=== PATIENT | female | born 1960 | race Caucasian/White ===

== ENCOUNTER 2020-11-02 11:08 | Emergency (ER) | payer MEDICARE, MEDICAID ==
[~2020-11-02] VITALS: Ht 157.5 cm; Wt 45.8 kg
[~2020-11-02 11:08] MED LIST: ASPI-605 PO; CALC-867 PO; CHOL200074 PO; HERB1TAB PO; LOSA50TA39 PO; MULT-24 GT; OXCA150T13 PO; PANT40SU PO
[2020-11-02 11:14] VITALS: BP 135/81
--- NOTE | 2020-11-02 11:23 | NUR ---
PATIENT REFUSED TO BE SEEN BY MD, REFUSED ANY FURTHER TREATMENT. RUDE AND CURSED STAFF. PATIENT WALKED OUT OF THE BUILDING. DR. SALMERON MADE AWARE.
--- NOTE | 2020-11-02 11:25 | NUR ---
PATIENT LEFT WITHOUT BEING SEEN BY PROVIDER.
== END 2020-11-02 11:25 | disposition left against medical advice (07) ==
LOC: ER 11:17
DX: Z53.21 Procedure and treatment not carried out due to patient leaving prior to being seen by health care provider (principal); R55 Syncope and collapse; R53.1 Weakness; F15.90 Other stimulant use, unspecified, uncomplicated; I10 Essential (primary) hypertension; J45.909 Unspecified asthma, uncomplicated; M81.0 Age-related osteoporosis without current pathological fracture; F32.9 Major depressive disorder, single episode, unspecified; F17.200 Nicotine dependence, unspecified, uncomplicated; Z98.890 Other specified postprocedural states; Z88.2 Allergy status to sulfonamides; Z79.899 Other long term (current) drug therapy; Z79.82 Long term (current) use of aspirin

== ENCOUNTER 2021-06-22 22:59 | Emergency (ER) | payer MEDICARE, OTHER ==
[~2021-06-22] VITALS: Ht 157.5 cm; Wt 50.3 kg
[2021-06-22] MEDS ORDERED: ALBUTEROL FS 2.5 MG/3 ML VIAL.NEB ONE (23:04)
[2021-06-22] MEDS ORDERED: IPRATROPIUM NEB FS 0.5 MG/2.5 ML AMPUL.NEB ONE (23:04)
[2021-06-22] MEDS ORDERED: Magnesium 1GM/D5W 100ML PREMIX 200 ML IV ONE ×2 (23:06→23:30)
[2021-06-22] MEDS ORDERED: methylPREDNISolone SOD SUCC 125 MG/2ML VIAL ONE (23:06)
[2021-06-22] MEDS ORDERED: ALBUTEROL FS 2.5 MG/3 ML VIAL.NEB CONTNEB ONE (23:30)
[2021-06-22] MEDS ORDERED: methylPREDNISolone SOD SUCC 125 MG/2ML VIAL IV ONE (23:30)
[2021-06-22] MEDS ORDERED: IPRATROPIUM NEB FS 0.5 MG/2.5 ML AMPUL.NEB NEB ONE (23:30)
[2021-06-22 23:32] LABS: BASOPHILS # (AUTO) 0.1 K/uL (0.0-0.2); BASOPHILS % (AUTO) 1.3 % (0.0-2.0); EOSINOPHILS % (AUTO) 7.8 % (0.0-6.0); HEMATOCRIT 35 % (33-45); HEMOGLOBIN 10.7 g/dL (11.5-14.8); LYMPHOCYTES # (AUTO) 2.4 K/uL (0.8-4.8); LYMPHOCYTES % (AUTO) 31.5 % (20.0-44.0); MEAN CORPUSCULAR HGB CONC 31 g/dl (31.0-36.0); MEAN CORPUSCULAR VOLUME 70 fL (82-100); MONOCYTES # (AUTO) 0.4 K/uL (0.1-1.30); MONOCYTES % (AUTO) 5.7 % (2.0-12.0); NEUTROPHILS # (AUTO) 4.1 K/uL (1.8-8.9); NEUTROPHILS % (AUTO) 53.7 % (43.0-81.0); PLATELET COUNT (AUTO) 444 K/uL (150-450); RED BLOOD CELL COUNT(AUTO) 4.98 MIL/uL (4.0-5.2); WHITE BLOOD COUNT (AUTO) 7.6 K/uL (4.3-11.0)
[2021-06-22 23:44] LABS: CARBON DIOXIDE 28 mmol/L (21-32); CHLORIDE 102 mmol/L (98-107); CREATININE 0.8 mg/dL (0.6-1.3); GLUCOSE 108 mg/dL (74-106); SODIUM SERUM 137 mmol/L (136-145); UREA NITROGEN, BLOOD 16 mg/dL (7-18)
[2021-06-22 23:58] LABS: ALANINE AMINOTRANSFERASE 23 U/L (12-78); ALBUMIN 3.7 g/dL (3.4-5.0); ALKALINE PHOSPHATASE 120 U/L (46-116); ASPARTATE AMINOTRANSFERASE 17 U/L (15-37); BILIRUBIN,DIRECT 0.1 mg/dL (0.0-0.2); BILIRUBIN,TOTAL 0.2 mg/dL (0.2-1.0)
[2021-06-23 00:16] VITALS: BP 143/82
[2021-06-23 06:52] LABS: EOSINOPHILS % (MANUAL) 1 % (0-4); LYMPHOCYTES % (MANUAL) 27 % (16-48); MONOCYTES % (MANUAL) 7 % (0-11.0); NEUTROPHILS % (MANUAL) 65 (42-76)
== END 2021-06-23 00:16 | disposition home or self-care (01) ==
LOC: ER 23:03
DX: J45.902 Unspecified asthma with status asthmaticus (principal); Z87.891 Personal history of nicotine dependence; F14.10 Cocaine abuse, uncomplicated; Z53.29 Procedure and treatment not carried out because of patient's decision for other reasons; Z20.822 Contact with and (suspected) exposure to COVID-19; I34.1 Nonrheumatic mitral (valve) prolapse; I10 Essential (primary) hypertension; Z85.828 Personal history of other malignant neoplasm of skin; Z88.2 Allergy status to sulfonamides; Z98.84 Bariatric surgery status; Z79.82 Long term (current) use of aspirin; Z79.899 Other long term (current) drug therapy
CPT/HCPCS: 36415; 71045; 80048; 80076; 83880; 84484; 85007; 85025; 87426; 93005; 94644; 96365; 96366; 96375; 99291; 99292; J2930; J3475; C9803

== ENCOUNTER 2022-02-11 08:56 | Emergency (ER) | payer MEDICARE, OTHER ==
[~2022-02-11] VITALS: Ht 157.5 cm; Wt 49.9 kg
--- NOTE | 2022-02-11 09:00 | NUR ---
BIBROOM MATE C/O worsening sob, asthma no relief with her inhaler. PLACED ON BED, AAOX4, DYSPNEIC RR-35 SATURATING AT 91%RA, ATTACHED TO MONITOR- NORMAL SINUS RHYTHYM AL-85.
--- NOTE | 2022-02-11 09:00 | NUR ---
Note yessi in EDM - 02/11/22 at 1018 by ROLLY BIB ROOM MATE C/O worsening sob, asthma no relief with her inhaler. PLACED ON BED, AAOX4, DYSPNEIC RR-35 SATURATING AT 91%RA, ATTACHED TO MONITOR NORMAL SINUS RHYTHYM NJ-85.
[2022-02-11] MEDS ORDERED: IPRATROPIUM NEB FS 0.5 MG/2.5 ML AMPUL.NEB ONE (09:10)
[2022-02-11] MEDS ORDERED: ALBUTEROL FS 2.5 MG/3 ML VIAL.NEB ONE (09:10)
--- NOTE | 2022-02-11 09:10 | NUR ---
BLOOD DRAWN SWAB FOR COVID19 SENT TO LAB
--- NOTE | 2022-02-11 09:10 | NUR ---
Earnest dickson in [facility] - 02/11/22 at 1018 by ROLLY BLOOD DRAWN AND SWAB FOR COVID19 SENT TO LAB
--- NOTE | 2022-02-11 09:15 | NUR ---
MOVE SHEET SUBMITTED.
[2022-02-11] MEDS ORDERED: methylPREDNISolone SOD SUCC 125 MG/2ML VIAL ONE (09:20)
[2022-02-11] MEDS: methylPREDNISolone SOD SUCC 125 MG/2ML VIAL IV ONE (09:23)
[2022-02-11] MEDS ORDERED: Magnesium 1GM/D5W 100ML PREMIX 0 ML IV ONE (09:25)
[2022-02-11] MEDS: Magnesium 1GM/D5W 100ML PREMIX 200 ML IV ONE (09:30)
[2022-02-11] MEDS ORDERED: ALBUTEROL FS 2.5 MG/3 ML VIAL.NEB CONTNEB ONE (09:30)
[2022-02-11] MEDS ORDERED: IPRATROPIUM NEB FS 0.5 MG/2.5 ML AMPUL.NEB NEB ONE (09:30)
[2022-02-11] MEDS ORDERED: ACETAMINOPHEN 325 MG TABLET ONE (09:37)
[2022-02-11 09:42] LABS: BASOPHILS # (AUTO) 0.1 K/uL (0.0-0.2); BASOPHILS % (AUTO) 1.3 % (0.0-2.0); EOSINOPHILS % (AUTO) 7.9 % (0.0-6.0); HEMATOCRIT 30 % (33-45); LYMPHOCYTES # (AUTO) 1.7 K/uL (0.8-4.8); LYMPHOCYTES % (AUTO) 26.3 % (20.0-44.0); MEAN CORPUSCULAR HGB CONC 30 g/dl (31.0-36.0); MEAN CORPUSCULAR VOLUME 73 fL (82-100); MONOCYTES # (AUTO) 0.5 K/uL (0.1-1.30); MONOCYTES % (AUTO) 7.8 % (2.0-12.0); NEUTROPHILS # (AUTO) 3.7 K/uL (1.8-8.9); NEUTROPHILS % (AUTO) 56.7 % (43.0-81.0); PLATELET COUNT (AUTO) 455 K/uL (150-450); RED BLOOD CELL COUNT(AUTO) 4.04 MIL/uL (4.0-5.2); WHITE BLOOD COUNT (AUTO) 6.6 K/uL (4.3-11.0)
[2022-02-11] MEDS ORDERED: MAGN400O6 PO (09:42)
[2022-02-11] MEDS ORDERED: FLUT10.62 IH (09:42)
[2022-02-11] MEDS: ACETAMINOPHEN 325 MG TABLET PO ONE (09:42)
[2022-02-11] MEDS ORDERED: DENO60DI SQ (09:42)
[2022-02-11] MEDS ORDERED: CLON0.5T4 PO (09:42)
[2022-02-11] MEDS ORDERED: TEMA30CA PO (09:42)
[2022-02-11] MEDS ORDERED: TRAZ-257 PO (09:42)
[2022-02-11] MEDS ORDERED: CITA20TA19 PO (09:42)
[2022-02-11] MEDS ORDERED: PANT40TA49 PO (09:42)
[2022-02-11] MEDS ORDERED: ALBU18HF2 IH (09:42)
[2022-02-11] MEDS ORDERED: IPRA3AMP23 IH (09:42)
[2022-02-11 09:54] LABS: CALCIUM, SERUM 9.3 mg/dL (8.5-10.1); CARBON DIOXIDE 30 mmol/L (21-32); CHLORIDE 104 mmol/L (98-107); CREATININE 0.8 mg/dL (0.6-1.3); GLUCOSE 109 mg/dL (74-106); POTASSIUM 3.8 mmol/L (3.5-5.1); SODIUM SERUM 138 mmol/L (136-145); UREA NITROGEN, BLOOD 22 mg/dL (7-18)
[2022-02-11] MEDS ORDERED: Magnesium 1GM/D5W 100ML PREMIX 100 ML IV ONE (10:29)
[2022-02-11] MEDS ORDERED: ALBU2.5V38 NEB (10:45)
[2022-02-11] MEDS ORDERED: ALBU18HF2 INH (10:45)
[2022-02-11] MEDS ORDERED: PRED20TA PO (10:45)
--- NOTE | 2022-02-11 10:57 | NUR ---
IV removed. Catheter intact and site benign. Pressure and 4x4 applied to site. No bleeding noted.Patient discharged to home in stable condition. Written and verbal after care instructions given. Patient verbalizes understanding of instruction. PATIENT SIGNED AMA.
[2022-02-11 10:59] VITALS: BP 140/85
== END 2022-02-11 10:45 | disposition left against medical advice (07) ==
LOC: ER 08:59
DX: J44.1 Chronic obstructive pulmonary disease with (acute) exacerbation (principal); R06.03 Acute respiratory distress; Z20.822 Contact with and (suspected) exposure to COVID-19; D50.9 Iron deficiency anemia, unspecified; D75.839 Thrombocytosis, unspecified; Z88.2 Allergy status to sulfonamides; Z98.84 Bariatric surgery status; I10 Essential (primary) hypertension; Z87.11 Personal history of peptic ulcer disease; I34.1 Nonrheumatic mitral (valve) prolapse; Z85.828 Personal history of other malignant neoplasm of skin
CPT/HCPCS: 99291; 96365; 96375; 87426; 93005; 71045; 85025; 80048; 36415; 84484; 83880; 82962; 94644; J2930; J3475; C9803

== ENCOUNTER 2022-03-06 05:28 | Inpatient (IN) | payer MEDICARE, MEDICAID ==
[~2022-03-06] VITALS: Ht 154.9 cm; Wt 49.9 kg
[~2022-03-06 05:28] MED LIST changes: +ALBU18HF2 IH; +ALBU18HF2 INH; +ALBU2.5V38 NEB; -ASPI-605 PO; -CALC-867 PO; -CHOL200074 PO; +CITA20TA19 PO; +CLON0.5T4 PO; +DENO60DI SQ; +FLUT10.62 IH; -HERB1TAB PO; +IPRA3AMP23 IH; -LOSA50TA39 PO; +MAGN400O6 PO; -MULT-24 GT; -PANT40SU PO; +PANT40TA49 PO; +PRED20TA PO; +TEMA30CA PO; +TRAZ-257 PO
--- NOTE | 2022-03-06 06:00 | NUR ---
PATIENT BIBRA FROM HOME C/O OVERDOSE. GIVEN 2 NARCAN SERVICE INSPECTOR. PATIENT IS A/O X 2. PATIENT TO ER BED 15. PATIENT CONNECTED TO RIB KNITTER AND POX. WILL CONTINUE TO MONITOR.
--- NOTE | 2022-03-06 06:15 | NUR ---
PATIENT UNABLE TO PROVIDE URINE AT THIS TIME
[2022-03-06 06:36] LABS: BASOPHILS # (AUTO) 0.1 K/uL (0.0-0.2); BASOPHILS % (AUTO) 0.8 % (0.0-2.0); EOSINOPHILS % (AUTO) 10.1 % (0.0-6.0); HEMATOCRIT 27 % (33-45); HEMOGLOBIN 8.6 g/dL (11.5-14.8); LYMPHOCYTES # (AUTO) 1.2 K/uL (0.8-4.8); LYMPHOCYTES % (AUTO) 13.9 % (20.0-44.0); MEAN CORPUSCULAR HGB CONC 32 g/dl (31.0-36.0); MEAN CORPUSCULAR VOLUME 72 fL (82-100); MONOCYTES # (AUTO) 0.4 K/uL (0.1-1.30); MONOCYTES % (AUTO) 4.3 % (2.0-12.0); NEUTROPHILS # (AUTO) 6.3 K/uL (1.8-8.9); NEUTROPHILS % (AUTO) 70.9 % (43.0-81.0); PLATELET COUNT (AUTO) 376 K/uL (150-450); RED BLOOD CELL COUNT(AUTO) 3.78 MIL/uL (4.0-5.2)
[2022-03-06 06:54] LABS: ALANINE AMINOTRANSFERASE 29 U/L (12-78); ALBUMIN 3.5 g/dL (3.4-5.0); ALCOHOL, BLOOD < 3 mg/dL (0-0); ALKALINE PHOSPHATASE 102 U/L (46-116); ASPARTATE AMINOTRANSFERASE 39 U/L (15-37); BILIRUBIN,DIRECT 0.1 mg/dL (0.0-0.2); BILIRUBIN,TOTAL 0.1 mg/dL (0.2-1.0); CARBON DIOXIDE 27 mmol/L (21-32); CHLORIDE 104 mmol/L (98-107); CREATININE 0.8 mg/dL (0.6-1.3); GLUCOSE 142 mg/dL (74-106); POTASSIUM 3.5 mmol/L (3.5-5.1); SODIUM SERUM 140 mmol/L (136-145); TOTAL PROTEIN, SERUM 7.1 g/dL (6.4-8.2); UREA NITROGEN, BLOOD 17 mg/dL (7-18)
[2022-03-06 06:58] LABS: ACETAMINOPHEN < 10 ug/ml (10-30)
[2022-03-06] MEDS ORDERED: IPRATROPIUM NEB FS 0.5 MG/2.5 ML AMPUL.NEB ONE (07:22)
[2022-03-06] MEDS ORDERED: ALBUTEROL FS 2.5 MG/3 ML VIAL.NEB ONE (07:22)
[2022-03-06] MEDS ORDERED: ALBUTEROL FS 2.5 MG/3 ML VIAL.NEB NEB ONE (07:30)
[2022-03-06] MEDS ORDERED: IPRATROPIUM NEB FS 0.5 MG/2.5 ML AMPUL.NEB NEB ONE (07:30)
[2022-03-06] MEDS ORDERED: predniSONE 20 MG TABLET PO ONE (07:30)
--- NOTE | 2022-03-06 07:30 | NUR ---
RT AT BEDSIDE FOR BREATHING TX
[2022-03-06] MEDS ORDERED: predniSONE 20 MG TABLET ONE (07:37)
--- NOTE | 2022-03-06 07:42 | NUR ---
PT AWAKE AND VERBALLY RESPONSIVE, NOT IN ACUTE DISTRESS. PREDNISONE PO GIVEN INDICATED, JONATHAN WELL.
--- NOTE | 2022-03-06 08:09 | NUR ---
PT REQUESTED TYLENOL FOR HEADACHE; INFORMED DR CRUMP W/ ORDER FOR TYLENOL, ORDER READ BACK AND VERIFIED.
[2022-03-06] MEDS ORDERED: ACETAMINOPHEN 325 MG TABLET PO ONE (08:30)
[2022-03-06] MEDS ORDERED: ACETAMINOPHEN 325 MG TABLET ONE (08:36)
--- NOTE | 2022-03-06 10:00 | NUR ---
CALLED PSYCH CLINICIAN. NEIDA BOYD.
[2022-03-06] MEDS ORDERED: OLANZAPINE 10 MG VIAL IM ONE ×2 (10:10→10:30)
--- NOTE | 2022-03-06 11:55 | NUR ---
BED 219-A
[2022-03-06] MEDS ORDERED: ALBU18HF2 IH (17:13)
[2022-03-06] MEDS ORDERED: IPRA3AMP23 IH (17:13)
[2022-03-06] MEDS ORDERED: TEMA30CA PO (17:13)
--- NOTE | 2022-03-06 17:56 | NUR ---
COVID SWAB COLLECTED AND SENT TO LAB
--- NOTE | 2022-03-06 18:52 | NUR ---
lab called for covid result,not resulted per Peter
--- NOTE | 2022-03-06 18:55 | NUR ---
report given to ar lopez. awaiting transfer to [facility].
--- NOTE | 2022-03-06 19:32 | NUR ---
TRANSFERRED TO 219 IN STABLE CONDITION
--- NOTE | 2022-03-06 19:35 | NUR ---
VIBRATOR OPERATOR NOTE: ADMITTED A 61-Y/O, FEMALE, FROM [facility]. ADMITTED ON A 5150 HOLD FOR DTS. PER HOLD, PT. WAS VISIBLY ANXIOUS, SHE WAS NOT ABLE TO SIT STILL, SHE WAS TALKING A LOT AND A LITTLE AGITATED. PATIENT ATTEMPTED TO KILL HERSELF WITH A FENTANYL OVERDOSE DUE TO HEARING THAT HER SPOUSE HAD TERMINAL CANCER. UPON FACE TO FACE EVALUATION, PATIENT IS ALERT AND ORIENTED X3, ANXIOUS, DEPRESSED, GUARDED. PATIENT DENIES SI/HI/AVH AT THIS TIME. SKIN ASSESSMENT DONE. SKIN IS INTACT. ALL BELONGINGS WERE CHECKED FOR CONTRABAND AND WAS KEPT IN PT'S ROOM LOCKER. HIS VALUABLES WERE TAKEN TO HOSPITAL SAFE VAULT. PATIENT'S RIGHTS WERE DISCUSSED AND BOOKLET WAS GIVEN. CONTACTED DR. CHILDS AND HOSPITALIST PRAVIN RAVI AND INFORMED THEM OF THE ADMISSION. BED IN LOW AND LOCKED POSITION. SAFETY PRECAUTIONS MAINTAINED. WILL CONTINUE TO MONITOR Q15 MINS FOR MOOD, SAFETY AND BEHAVIOR. PATIENT REFUSED TO COMMENT ABOUT FLU VACCINE AND REFUSING TO GET ONE. WILL INFORM RESPONSIBLE LIBERTARIAN IN THE MORNING.
[2022-03-06 20:05] VITALS: BP 157/68
[2022-03-06 20:24] LABS: BILIRUBIN,URINE NEGATIVE (NEGATIVE); COLOR,URINE YELLOW (YELLOW); LEUKOCYTE ESTERASE ,URINE NEGATIVE (NEGATIVE); NITRITE, URINE NEGATIVE (NEGATIVE); PROTEIN,URINE NEGATIVE (NEGATIVE); UGLUCOSE >=1000 mg/dL (NEGATIVE); UROBILINOGEN,URINE 0.2 EU/dL (0.2)
[2022-03-06] MEDS ORDERED: ZOLPIDEM TARTRATE 5 MG TABLET PO PRN (20:30)
[2022-03-06] MEDS ORDERED: LORAZEPAM 0.5 MG TABLET PO PRN (20:30)
[2022-03-06] MEDS ORDERED: MAGNESIUM HYDROXIDE 30 ML UDC PO PRN (20:30)
[2022-03-06] MEDS ORDERED: BLOOD SUGAR DIAGNOSTIC 1 EACH STRIP IN ONE (20:30)
[2022-03-06 20:34] LABS: BACTERIA,URINE RARE /HPF (None Seen); RBC,URINE 0-2 /HPF (0-2); WBC,URINE 0-2 /HPF (0-3)
--- NOTE | 2022-03-07 06:30 | NUR ---
RN NOTE WHEN APPROACHED THE PATIENT TO VERIFY WHO TO CALL TO INFORM ABOUT HER ADMISSION AT [facility], PATIENT REQUESTED NOT TO CALL ANY FAMILY MEMBER AT THIS TIME SINCE IT'S TOO EARLY. PER PATIENT LIDYA PEDERSEN IS THE PERSON TO NOTIFY BUT HE IS AWARE REGARDING HER ADMISSION AND HE WAS WITH HER IN THE ER. PATIENT PREFERS TO CALL LIDYA PEDERSEN HERSELF AFTER BREAKFAST.
[2022-03-07] MEDS ORDERED: ALBUTEROL FS 2.5 MG/3 ML VIAL.NEB NEB PRN (07:30)
[2022-03-07] MEDS ORDERED: IPRATROPIUM NEB FS 0.5 MG/2.5 ML AMPUL.NEB NEB PRN (07:30)
[2022-03-07 08:00] VITALS: BP 135/65
[2022-03-07] MEDS ORDERED: DOCU-141 PO (10:01)
[2022-03-07] MEDS ORDERED: PANT40TA2 PO (10:01)
--- NOTE | 2022-03-07 10:19 | NUR ---
ANDREW Initial Discharge Plan: Patient currently resides at [address] [place] [address] ; ([phone]). Pt lives with her partner Aldo ([phone]) and would want to return back home. ANDREW will work with the MD, treatment team, and pt to help coordinate appropriate discharge.
--- NOTE | 2022-03-07 10:19 | NUR ---
ANDREW Clinical Note: Pt placed on a 5150 hold for danger to herself. Pt attempted to kill herself with Fentanyl overdose due to her partner having cancer. Patient currently resides at [address] [place] [address] ; ([phone]). Pt lives with her partner Aldo ([phone]) and would want to return back home.
--- NOTE | 2022-03-07 10:20 | NUR ---
Treatment Plan: Pt refused to sign treatment plan and was suspicious.
--- NOTE | 2022-03-07 10:30 | NUR ---
RN Notes: Received pt. awake in bed, responsive to staffs. Ate 100% for breakfast, pt. denies being suicidal and homicidal, denies visual and auditory hallucinations and denies being paranoid. Encouraged to verbalize feelings and motivated to attend group activity. Pt. seen by the medical doctors and reminded to reconcile on meds that was added on her home meds. Needs attended, no distress and no agitation noted. Will continue to monitor for safety.
[2022-03-07] MEDS ORDERED: QUETIAPINE FUMARATE 100 MG TABLET PO SCH (12:00)
[2022-03-07] MEDS: CITALOPRAM HYDROBROMIDE 20 MG TABLET PO SCH (12:10)
--- NOTE | 2022-03-07 13:28 | NUR ---
Social Work Note/Substance Abuse Intervention: Patient was provided with a brief substance abuse intervention and referred to [facility] ([phone]), [facility] ([phone]), and [facility] ([phone]) for using drugs.
--- NOTE | 2022-03-07 13:55 | NUR ---
Pt. refused lab draw for the second time. Explained on the importance and said they draw blood already before I came and I'm anemic.
--- NOTE | 2022-03-07 13:59 | NUR ---
SW Note: Pt stated to this auto service writer to not contact her partner and did not want this auto service writer to disclose any information.
[2022-03-07 16:00] VITALS: BP 146/90
[2022-03-07] MEDS: OXCARBAZEPINE 150 MG TABLET PO SCH (16:19)
--- NOTE | 2022-03-07 19:30 | NUR ---
GPS RN NOTE, RECEIVED PATIENT AWAKE AND IN BED, NO S/S OR COMPLAINTS OF PAIN AT THIS TIME. PATIENT IS DISPLAYING NO S/S OF APPARENT DISTRESS AT THIS TIME. PATIENT BREATHING IS UNLABORED WITH EQUAL RISE AND FALL OF THE CHEST. PATIENT IS ALERT AND ORIENTED X 3 ON ROOM AIR WITH A SPO2 99%. PATIENT IS COMPLIANT WITH MEDICATIONS, CALM, POLITE, AND COOPERATIVE. PATIENT DENIES SUICIDAL AND HOMICIDAL IDEATIONS AT THIS TIME. PATIENT ASSISTED WITH TURNING AND REPOSITIONING Q2HR AND PRN FOR COMFORT AND CIRCULATION. PATIENT HAS NO NEEDS AT THIS TIME. PATIENT EDUCATED ON THE USE OF THE CALL PRUETT. PATIENT BED SIDE RAILS UP X 2 FOR SAFETY. PATIENT BED IS LOCKED, LOW, WITH BED ALARM ON. WILL CONTINUE TO MONITOR THIS PATIENT Q15 MINUTES WITH THE HELP OF STAFF TO MAINTAIN SAFETY.
[2022-03-07 20:00] VITALS: BP 155/94
[2022-03-07] MEDS: QUETIAPINE FUMARATE 100 MG TABLET PO SCH (21:16)
[2022-03-07] MEDS: TEMAZEPAM 15 MG CAPSULE PO PRN (22:21)
--- NOTE | 2022-03-07 22:24 | NUR ---
GPS RN NOTE, PATIENT HAS A COMPLAINT OF NOT BEING ABLE TO SLEEP AND IS REQUESTING RESTORIL AT THIS TIME. PATIENT VITAL SIGNS ARE STABLE. GAVE RESTORIL 30MG PO HS PRN ORDERED. WILL REASSESS FOR INSOMNIA AND I WILL CONTINUE TO MONITOR THIS PATIENT WITH THE HELP OF STAFF.
[2022-03-08 08:00] VITALS: BP 124/87
[2022-03-08] MEDS: CITALOPRAM HYDROBROMIDE 20 MG TABLET PO SCH (08:08)
[2022-03-08] MEDS: OXCARBAZEPINE 150 MG TABLET PO SCH ×2 (08:09→16:16)
--- NOTE | 2022-03-08 08:25 | NUR ---
Dr. pina in the unit and told to reconcile the meds and ordered to changed to diet to regular diet.
[2022-03-08] MEDS: ACETAMINOPHEN 325 MG TABLET PO PRN ×3 (09:25→22:58)
--- NOTE | 2022-03-08 09:35 | NUR ---
RN Notes: Received pt. awake in bed, pleasant upon approached, no distress and no agitation noted. Ate 75% for breakfast. Compliant on meds and Dr. Collins in the unit and told to reconcile the meds that been added and ordered to changed to diet to regular diet. Encouraged to verbalize feelings and motivated to attend group activity. Needs attended and will continue to monitor for safety.
--- NOTE | 2022-03-08 09:45 | NUR ---
At about 0945 pt. was in the dining room with the remote control to watch tv. Other male pt. came and grab the remote control and telling that I.m watching and I'm the first one that watched tv.
[2022-03-08] MEDS: MAG HYDROX/AL HYDROX/SIMETH 30 ML UDC PO PRN (14:36)
[2022-03-08 16:00] VITALS: BP 143/84
--- NOTE | 2022-03-08 19:30 | NUR ---
GPS RN NOTE, RECEIVED PATIENT AWAKE AND IN BED, NO S/S OR COMPLAINTS OF PAIN AT THIS TIME. PATIENT IS DISPLAYING NO S/S OF APPARENT DISTRESS AT THIS TIME. PATIENT BREATHING IS UNLABORED WITH EQUAL RISE AND FALL OF THE CHEST. PATIENT IS ALERT AND ORIENTED X 3 ON ROOM AIR WITH A SPO2 98%. PATIENT IS COMPLIANT WITH MEDICATIONS, CALM, POLITE, MAKES NEEDS KNOWN, DEPRESSED, AND COOPERATIVE. PATIENT DENIES SUICIDAL AND HOMICIDAL IDEATIONS AT THIS TIME. PATIENT ASSISTED WITH TURNING AND REPOSITIONING Q2HR AND PRN FOR COMFORT AND CIRCULATION. PATIENT HAS NO NEEDS AT THIS TIME. PATIENT EDUCATED ON THE USE OF THE CALL PRUETT. PATIENT BED SIDE RAILS UP X 2 FOR SAFETY. PATIENT BED IS LOCKED, LOW, WITH BED ALARM ON. WILL CONTINUE TO MONITOR THIS PATIENT Q15 MINUTES WITH THE HELP OF STAFF TO MAINTAIN SAFETY.
[2022-03-08 21:01] VITALS: BP 141/94
[2022-03-08] MEDS: QUETIAPINE FUMARATE 100 MG TABLET PO SCH (21:05)
[2022-03-08] MEDS: TEMAZEPAM 15 MG CAPSULE PO PRN (21:07)
--- NOTE | 2022-03-08 23:00 | NUR ---
GPS RN NOTE, PATIENT HAS A COMPLAINT OF CHRONIC NECK PAIN AT 3 OUT OF 10 ON THE PAIN SCALE AND IS REQUESTING TYLENOL AT TIS TIME. PATIENT VITAL SIGNS ARE STABLE. GAVE TYLENOL 650MG PO Q6HR PRN ORDERED. WILL REASSESS PAIN AND I WILL CONTINUE TO MONITOR THIS PATIENT WITH THE HELP OF STAFF.
[2022-03-09 08:00] VITALS: BP 154/94
[2022-03-09] MEDS: CITALOPRAM HYDROBROMIDE 20 MG TABLET PO SCH (08:30)
[2022-03-09] MEDS: OXCARBAZEPINE 150 MG TABLET PO SCH ×2 (08:30→16:10)
[2022-03-09] MEDS: ACETAMINOPHEN 325 MG TABLET PO PRN (09:10)
[2022-03-09 16:00] VITALS: BP 152/95
[2022-03-09] MEDS: MAG HYDROX/AL HYDROX/SIMETH 30 ML UDC PO PRN (18:51)
--- NOTE | 2022-03-09 19:30 | NUR ---
GPS RN NOTE, RECEIVED PATIENT AWAKE AND IN BED, NO S/S OR COMPLAINTS OF PAIN AT THIS TIME. PATIENT IS DISPLAYING NO S/S OF APPARENT DISTRESS AT THIS TIME. PATIENT BREATHING IS UNLABORED WITH EQUAL RISE AND FALL OF THE CHEST. PATIENT IS ALERT AND ORIENTED X 3 ON ROOM AIR WITH A SPO2 99%. PATIENT IS COMPLIANT WITH MEDICATIONS, CALM, POLITE, MAKES NEEDS KNOWN, DEPRESSED, AND COOPERATIVE. PATIENT DENIES SUICIDAL AND HOMICIDAL IDEATIONS AT THIS TIME. PATIENT ASSISTED WITH TURNING AND REPOSITIONING Q2HR AND PRN FOR COMFORT AND CIRCULATION. PATIENT HAS NO NEEDS AT THIS TIME. PATIENT EDUCATED ON THE USE OF THE CALL PRUETT. PATIENT BED SIDE RAILS UP X 2 FOR SAFETY. PATIENT BED IS LOCKED, LOW, WITH BED ALARM ON. WILL CONTINUE TO MONITOR THIS PATIENT Q15 MINUTES WITH THE HELP OF STAFF TO MAINTAIN SAFETY.
[2022-03-09 20:32] VITALS: BP 154/93
[2022-03-09] MEDS: QUETIAPINE FUMARATE 100 MG TABLET PO SCH (21:26)
[2022-03-09] MEDS: TEMAZEPAM 15 MG CAPSULE PO PRN (21:26)
[2022-03-10 08:00] VITALS: BP 144/99
[2022-03-10] MEDS: CITALOPRAM HYDROBROMIDE 20 MG TABLET PO SCH (08:34)
[2022-03-10] MEDS: OXCARBAZEPINE 150 MG TABLET PO SCH ×2 (08:34→17:42)
[2022-03-10 16:00] VITALS: BP 129/96
[2022-03-10 20:08] VITALS: BP 130/85
[2022-03-10] MEDS: QUETIAPINE FUMARATE 100 MG TABLET PO SCH (21:24)
[2022-03-10] MEDS: TEMAZEPAM 15 MG CAPSULE PO PRN (21:25)
[2022-03-11 08:00] VITALS: BP 140/96
[2022-03-11] MEDS: CITALOPRAM HYDROBROMIDE 20 MG TABLET PO SCH (08:49)
[2022-03-11] MEDS: OXCARBAZEPINE 150 MG TABLET PO SCH ×2 (08:49→16:47)
--- NOTE | 2022-03-11 09:09 | NUR ---
RN-CO: Patient is cooperative to care. Denied pain and discomforts. Denied suicidal ideation, visible in the unit and participating in group activities.
--- NOTE | 2022-03-11 10:39 | NUR ---
ANRDEW Coordination of Care: Patient referred for intake evaluation (psychiatry) at [facility] located at [address] [place] [id number]: ([phone]) on 03/13/2022 at 1:30 via telehealth, coordinated by officer of the day.
[2022-03-11] MEDS: ACETAMINOPHEN 325 MG TABLET PO PRN ×2 (13:13→21:54)
--- NOTE | 2022-03-11 13:14 | NUR ---
RN-CO: TYLENOL 650 MG PO GIVEN FOR NECK PAIN 07/26.
[2022-03-11 16:00] VITALS: BP 137/85
[2022-03-11] MEDS: MAG HYDROX/AL HYDROX/SIMETH 30 ML UDC PO PRN (18:29)
[2022-03-11 20:03] VITALS: BP 124/65
[2022-03-11] MEDS: QUETIAPINE FUMARATE 100 MG TABLET PO SCH (21:13)
[2022-03-11] MEDS: TEMAZEPAM 15 MG CAPSULE PO PRN (21:49)
--- NOTE | 2022-03-11 21:50 | NUR ---
NURSE NOTE: PT REQUESTED RESTORIL AT THIS TIME. STATED SHE'S UNABLE TO SLEEP AT THIS TIME. RESTORIL ADMINISTERED ORDERED. WILL CONT TO MONITOR.
--- NOTE | 2022-03-11 21:55 | NUR ---
NURSES NOTE: PT C/O NECK PAIN AT THIS TIME. REQUESTED TYLENOL AND A HEAT PACK. TYLENOL AND HEAT PACK GIVEN AT THIS TIME. PT TOLERATED WELL. WILL CONT TO MONITOR.
--- NOTE | 2022-03-12 00:50 | NUR ---
NURSE NOTE: PT SLEEPING AT HIS TIME. RESTORIL AND TYLENOL EFFECTIVE AT THIS TIME. WILL CONT TO MONITOR
[2022-03-12 08:00] VITALS: BP 156/98
--- NOTE | 2022-03-12 08:07 | NUR ---
SW Discharge Note: [facility] [address], [place] [address]; ([phone]). Patients partner Aldo ([phone]) will citrus picker pt at 11AM. Pt is alert and oriented x3. Pt denies visual/auditory hallucinations. Pt denies suicidal or homicidal ideation. Pt happy to be going back home. Patient referred to [facility] for primary doctor located at [address], [address], [place] [address] ([phone]). Patient referred for intake evaluation (psychiatry) at [facility] located at [address] [place] [id number]: ([phone]) on 03/13/2022 at 1:30PM via telehealth. Patient presents with euthymic mood and congruent affect.
[2022-03-12] MEDS: OXCARBAZEPINE 150 MG TABLET PO SCH (08:43)
[2022-03-12] MEDS: CITALOPRAM HYDROBROMIDE 20 MG TABLET PO SCH (08:43)
[2022-03-12] MEDS: MAG HYDROX/AL HYDROX/SIMETH 30 ML UDC PO PRN (09:00)
--- NOTE | 2022-03-12 11:15 | NUR ---
DECISION ANALYST NOTES: PATIENT DC HOME WITH LIDYA. ALERT AND ORIENTED X 3. AMBULATORY. NO SOB OR CARDIAC DISTRESS NOTED, DENIES PAIN AND DISCOMFORT AT THIS TIME. DISCHARGE PACKET AND INSTRUCTIONS GIVEN TO PATIENT AND , VERBALIZED UNDERSTANDING. BELONGINGS GIVEN TO PT SIGNED ALL FORMS. PT ACCOMPANIED BY ARLEEN GEORGE. PATIENT LEFT THE UNIT STABLE.
== END 2022-03-12 11:15 | disposition home or self-care (01) | DRG 885 ==
LOC: ER 05:29 → GPS 18:27
PROVIDERS: ADMIT Psychiatry & Neurology Psychiatry; ATTEND Registered Nurse
DX: F31.5 Bipolar disorder, current episode depressed, severe, with psychotic features (principal); T40.412A Poisoning by fentanyl or fentanyl analogs, intentional self-harm, initial encounter; G40.909 Epilepsy, unspecified, not intractable, without status epilepticus; J44.9 Chronic obstructive pulmonary disease, unspecified; I10 Essential (primary) hypertension; K21.9 Gastro-esophageal reflux disease without esophagitis; M81.0 Age-related osteoporosis without current pathological fracture; Z98.84 Bariatric surgery status; Z20.822 Contact with and (suspected) exposure to COVID-19; Y92.009 Unspecified place in unspecified non-institutional (private) residence as the place of occurrence of the external cause; K27.9 Peptic ulcer, site unspecified, unspecified as acute or chronic, without hemorrhage or perforation; F14.10 Cocaine abuse, uncomplicated; F11.10 Opioid abuse, uncomplicated
CPT/HCPCS: 36415; 80048-TC; 80076-TC; 81001; 82962-TC; 85025-TC; 87081-TC; G0480; J3490

== ENCOUNTER 2022-06-16 18:55 | Inpatient (IN) | payer MEDICARE, OTHER ==
[~2022-06-16] VITALS: Ht 165.1 cm; Wt 49.0 kg
[~2022-06-16 18:55] MED LIST changes: -ALBU18HF2 INH; -ALBU2.5V38 NEB; -CITA20TA19 PO; -CLON0.5T4 PO; -DENO60DI SQ; +DOCU-141 PO; -FLUT10.62 IH; -MAGN400O6 PO; -OXCA150T13 PO; +PANT40TA2 PO; -PANT40TA49 PO; -PRED20TA PO; -TEMA30CA PO; -TRAZ-257 PO
--- NOTE | 2022-06-16 19:00 | NUR ---
[id number] HOME FOR ALTERED MENTATION FOUND BY 2 HOURS AGO. [facility]KW WAS MIDNIGHT. PLACED IN BED AGITATATED, NOT RESPONDING TO VERBAL STIMULI, SATURATING AT 97%RA.
[2022-06-16] MEDS ORDERED: ACETAMINOPHEN 650 MG/SUPP.RECT RC ONE ×2 (19:30→19:48)
[2022-06-16] MEDS ORDERED: IV NS 0.9% 1,000 ML BAG IV ONE ×2 (19:30→20:00)
--- NOTE | 2022-06-16 19:34 | NUR ---
COVID SWAB DONE AND SENT TO LAB
[2022-06-16] MEDS ORDERED: ONDANSETRON HCL/PF 4 MG/2 ML VIAL ONE (19:48)
--- NOTE | 2022-06-16 19:54 | NUR ---
BLOOD AND CULTURES COLLECTED AND SENT TO LAB
--- NOTE | 2022-06-16 19:55 | NUR ---
20G LAC STARTED AND DRESSED NO S/S OF INFLITRATION
[2022-06-16] MEDS ORDERED: ONDANSETRON HCL/PF 4 MG/2 ML VIAL IVP ONE (20:00)
[2022-06-16 20:02] LABS: BASOPHILS % (AUTO) 0.7 % (0.0-2.0); HEMATOCRIT 27 % (33-45); HEMOGLOBIN 8.2 g/dL (11.5-14.8); LYMPHOCYTES # (AUTO) 0.6 K/uL (0.8-4.8); LYMPHOCYTES % (AUTO) 10.2 % (20.0-44.0); MEAN CORPUSCULAR HGB CONC 30 g/dl (31.0-36.0); MEAN CORPUSCULAR VOLUME 67 fL (82-100); MONOCYTES # (AUTO) 0.2 K/uL (0.1-1.30); MONOCYTES % (AUTO) 3.1 % (2.0-12.0); NEUTROPHILS # (AUTO) 5.3 K/uL (1.8-8.9); PLATELET COUNT (AUTO) 294 K/uL (150-450); RED BLOOD CELL COUNT(AUTO) 4.03 MIL/uL (4.0-5.2); WHITE BLOOD COUNT (AUTO) 6.2 K/uL (4.3-11.0)
[2022-06-16 20:18] LABS: SERUM AMMONIA 3 umol/L (11-32)
[2022-06-16 20:19] LABS: CARBON DIOXIDE 26 mmol/L (21-32); CHLORIDE 99 mmol/L (98-107); CREATININE 1.1 mg/dL (0.6-1.3); GLUCOSE 143 mg/dL (74-106); POTASSIUM 3.8 mmol/L (3.5-5.1); SODIUM SERUM 133 mmol/L (136-145); UREA NITROGEN, BLOOD 15 mg/dL (7-18)
[2022-06-16 20:31] LABS: ALANINE AMINOTRANSFERASE 17 U/L (12-78); ALBUMIN 3.5 g/dL (3.4-5.0); ALKALINE PHOSPHATASE 115 U/L (46-116); ASPARTATE AMINOTRANSFERASE 18 U/L (15-37); BILIRUBIN,DIRECT 0.1 mg/dL (0.0-0.2); BILIRUBIN,TOTAL 0.3 mg/dL (0.2-1.0); TOTAL PROTEIN, SERUM 7.5 g/dL (6.4-8.2)
--- NOTE | 2022-06-16 20:32 | NUR ---
URINE SAMPLE SENT TO LAB
--- NOTE | 2022-06-16 20:38 | NUR ---
BROUGHT TO CT DEPT
[2022-06-16 21:08] LABS: ALCOHOL, BLOOD < 3 mg/dL (0-0); THYROID STIMULATING HORMONE 0.217 uIU/mL (0.358-3.74)
[2022-06-16 21:10] LABS: BILIRUBIN,URINE NEGATIVE (NEGATIVE); COLOR,URINE YELLOW (YELLOW); LEUKOCYTE ESTERASE ,URINE 2+ (NEGATIVE); NITRITE, URINE NEGATIVE (NEGATIVE); PROTEIN,URINE NEGATIVE (NEGATIVE); UGLUCOSE NEGATIVE (NEGATIVE); UROBILINOGEN,URINE 0.2 EU/dL (0.2)
[2022-06-16] MEDS ORDERED: PIPERACILLIN /TAZOBACTAM 3.375 G VIAL IV ONE (21:20)
[2022-06-16 21:30] LABS: BACTERIA,URINE 3+ /HPF (None Seen); SQUAMOUS EPITHELIAL CELL,UR 21-50 /HPF (None Seen)
[2022-06-16] MEDS ORDERED: PIPERACILLIN /TAZOBACTAM 3.375 G in IV D5W 50 ML IV ONE (21:30)
[2022-06-16 21:37] LABS: LYMPHOCYTES % (MANUAL) 10 % (16-48); MONOCYTES % (MANUAL) 1 % (0-11.0); NEUTROPHILS % (MANUAL) 89 (42-76)
--- NOTE | 2022-06-16 21:55 | NUR ---
REPORT GIVEN TO NINA RN ROOM 308 FOR BARBI
[2022-06-16 22:20] VITALS: BP 128/51
[2022-06-16 22:30] VITALS: BP 128/51
[2022-06-16 22:49] LABS: ACETAMINOPHEN < 10 ug/ml (10-30)
--- NOTE | 2022-06-16 23:10 | NUR ---
CHILD CARE LEAD TEACHERDIRECTOR OF EVENT SALES NOTE RECEIVED PATIENT FROM ER VIA [facility] AT 2220 IN STABLE CONDITION. PATIENT WAS ADMITTED DUE TO ALTERED MENTAL STATUS. PATIENT IS AWAKE, ALERT AND ORIENTED X 1. WITH PERIODS OF CONFUSION. ON ROOM AIR; TOLERATING WELL SATURATING @ 97%. ON TELE MONITORING WHICH READS SR HR-71 BPM. AFEBRILE, NOT IN ANY FORM OF RESPIRATORY OR CARDIAC DISTRESS. DENIES ANY PAIN OR DISCOMFORT AT THIS TIME. WITH IV ACCESS ON LEFT AC 20g; PATENT AND INTACT AND STARTED WITH IV FLUIDS NS 1L REGULATED @ 75 ML/HR; FLUSHES WELL. VS TAKEN AND RECORDED FOLLOWS: BP 128/51 MM HG, AZ 78, RR 20, TEMP 98.4, O2 SAT 97%. BODY AND SKIN ASSESSMENT DONE; WARM TO TOUCH AND INTACT. ORIENTED TO STAFF, ROOM AND UNIT. SAFETY MEASURES IMPLEMENTED: CALL LIGHT AND TABLE WITHIN REACH, SIDE RAILS UP X 3, BED IN LOWEST LOCKED POSITION. WILL CONTINUE PLAN OF CARE. Addendum: 06/17/22 at 0705 by ASHA LACKEY RN WITH AVERY CATHETER IN PLACE DRAINING TO CLEAR YELLOW URINE OUTPUT.
[2022-06-17] VITALS: BP 138/50
[2022-06-17] MEDS ORDERED: Z GUARD REMEDY 4 OZ OINT TP PRN
[2022-06-17] MEDS ORDERED: MAGNESIUM HYDROXIDE 30 ML UDC PO PRN
[2022-06-17] MEDS ORDERED: ONDANSETRON HCL/PF 4 MG/2 ML VIAL IVP PRN
[2022-06-17] MEDS ORDERED: ZOLPIDEM TARTRATE 5 MG TABLET PO PRN
[2022-06-17] MEDS ORDERED: MAG HYDROX/AL HYDROX/SIMETH 30 ML UDC PO PRN
--- NOTE | 2022-06-17 00:36 | NUR ---
RN NOTE PATIENT KEPT ON GETTING OUT OF BED X 3. PATIENT TRIED TO PULL HER AVERY CATH. URIEL MOSQUERA NP MADE AWARE. WITH ORDER MADE AND CARRIED OUT. PLACED PATIENT ON BILATERAL SOFT WRIST RESTRAINTS. SKIN AND CIRCULATION CHECKED; WNL. WILL CONTINUE TO MONITOR.
[2022-06-17 00:37] VITALS: BP 138/50
[2022-06-17] MEDS: IV NS 0.9% 1,000 ML IV PRN ×2 (00:38→17:25)
[2022-06-17] MEDS ORDERED: PIPERACILLIN /TAZOBACTAM 3.375 G VIAL IV ONE (02:41)
[2022-06-17] MEDS ORDERED: PIPERACILLIN /TAZOBACTAM 3.375 G in IV D5W 50 ML IV SCH (03:00)
--- NOTE | 2022-06-17 04:10 | NUR ---
RN NOTE PATIENT REFUSED TO HAVE 0400 VITAL SIGNS TAKEN. PATIENT IS UNCOOPERATIVE.
[2022-06-17] MEDS ORDERED: ACETAMINOPHEN 650 MG/SUPP.RECT RC ONE ×2 (07:00)
--- NOTE | 2022-06-17 07:15 | NUR ---
ALUMNI RELATIONS COORDINATOR CLOSING NOTE PATIENT IN BED; AWAKE, A/O X 1. WITH PERIODS OF CONFUSION. STABLE ON ROOM AIR. ON TELE MONITORING WHICH READS SR HR-69 BPM. IN NO ACUTE DISTRESS. DENIES ANY PAIN OR DISCOMFORT AT THIS TIME. WITH IV ACCESS ON LEFT AC 20g; PATENT AND INTACT RUNNING WITH NS 1L REGULATED @ 75 ML/HR; FLUSHES WELL. WITH BILATERAL SOFT WRIST RESTRAINT IN PLACE; SKIN AND CIRCULATION; WNL. SAFETY MEASURES MAINTAINED: CALL LIGHT AND TABLE WITHIN REACH, SIDE RAILS UP X 3, BED IN LOWEST LOCKED POSITION. ENDORSED TO MORNING SHIFT FOR BARBI.
[2022-06-17 07:38] LABS: BASOPHILS # (AUTO) 0.1 K/uL (0.0-0.2); HEMATOCRIT 25 % (33-45); HEMOGLOBIN 7.5 g/dL (11.5-14.8); LYMPHOCYTES # (AUTO) 0.7 K/uL (0.8-4.8); LYMPHOCYTES % (AUTO) 13.7 % (20.0-44.0); MEAN CORPUSCULAR HGB CONC 30 g/dl (31.0-36.0); MEAN CORPUSCULAR VOLUME 68 fL (82-100); MONOCYTES # (AUTO) 0.3 K/uL (0.1-1.30); MONOCYTES % (AUTO) 5.7 % (2.0-12.0); NEUTROPHILS # (AUTO) 4.1 K/uL (1.8-8.9); NEUTROPHILS % (AUTO) 79.6 % (43.0-81.0); PLATELET COUNT (AUTO) 263 K/uL (150-450); RED BLOOD CELL COUNT(AUTO) 3.69 MIL/uL (4.0-5.2); WHITE BLOOD COUNT (AUTO) 5.1 K/uL (4.3-11.0)
[2022-06-17 07:44] LABS: ALBUMIN 3.2 g/dL (3.4-5.0); BILIRUBIN,DIRECT 0.1 mg/dL (0.0-0.2); BILIRUBIN,TOTAL 0.3 mg/dL (0.2-1.0); CALCIUM, SERUM 8.9 mg/dL (8.5-10.1); CREATININE 0.9 mg/dL (0.6-1.3); PHOSPHORUS 2.5 mg/dL (2.5-4.9); POTASSIUM 3.6 mmol/L (3.5-5.1); TOTAL PROTEIN, SERUM 6.8 g/dL (6.4-8.2)
[2022-06-17 07:50] LABS: T4 (THYROXINE) 5.1 ug/dL (4.7-13.3); THYROID STIMULATING HORMONE 0.272 uIU/mL (0.358-3.74)
--- NOTE | 2022-06-17 08:00 | NUR ---
RN OPENING NOTE PATIENT AWAKE IN BED RESTING, A/O X 1, CONFUSED, NO S/S OF PAIN NOTED AT THIS TIME. ON ROOM AIR, NO SHORTNESS OF BREATH, NO DISTRESS NOTED. IV ACCESS LAC #20G, INTACT, PATENT AND FLUSHING WELL. PATIENT ON EXTERNAL PLATE GRAINER APPRENTICE WITH CURRENT READING OF SR AND HR OF 69, NO CARDIAC DISTRESS NOTED. PATIENT HAVE A AVERY CATHETER IN PLACE AND DRAINING WELL. FALL AND SAFETY MEASURES IN PLACE, BED ALARM ON, BED IN LOW AND LOCK POSITION, CALL LIGHT AND TABLE WITHIN EASY REACH, SIDE RAILS UP X2. WILL CONTINUE TO MONITOR.
[2022-06-17 08:11] VITALS: BP 147/85
[2022-06-17] MEDS: PIPERACILLIN /TAZOBACTAM 3.375 G in IV D5W 50 ML IV SCH ×3 (08:28→20:31)
[2022-06-17] MEDS: PANTOPRAZOLE 40 MG VIAL IV SCH (08:28)
[2022-06-17] MEDS: ENOXAPARIN SODIUM 40 MG/0.4 ML DISP.SYRIN SQ SCH ×2 (08:32→20:33)
[2022-06-17 09:16] LABS: EOSINOPHILS % (MANUAL) 2 % (0-4); LYMPHOCYTES % (MANUAL) 13 % (16-48); MONOCYTES % (MANUAL) 6 % (0-11.0); NEUTROPHILS % (MANUAL) 79 (42-76)
[2022-06-17] MEDS ORDERED: OXCA600T8 PO (10:09)
[2022-06-17] MEDS ORDERED: QUET200T5 PO (10:09)
[2022-06-17] MEDS ORDERED: ALBU18HF2 IH (10:09)
[2022-06-17] MEDS ORDERED: CITA20TA16 PO (10:09)
--- NOTE | 2022-06-17 10:50 | NUR ---
RN NOTE PATIENT TEMPERATURE WAS 101.1, TYLENOL WAS GIVEN, COOL MEASURES WERE USED, PATIENT CURRENT TEMPERATURE IS 97.6. WILL CONTINUE TO MONITOR.
[2022-06-17] MEDS: OXCARBAZEPINE 150 MG TABLET PO SCH ×2 (11:00→17:15)
[2022-06-17] MEDS: CITALOPRAM HYDROBROMIDE 20 MG TABLET PO SCH (11:00)
--- NOTE | 2022-06-17 11:50 | NUR ---
RN NOTE UNABLE TO DO NURSING SWALLOW EVALUATION, PATIENT STILL CONFUSED AND PATIENT IS VERY SLEEPY, NOT ABLE TO FOLLOW DIRECTIONS. PATIENT REFUSED TO OPEN HER MOUTH WILL TRY AGAIN, WILL CONTINUE TO MONITOR. SWALLOW EVALUATION ORDER WAS PLACED.
[2022-06-17 12:00] VITALS: BP 146/83
[2022-06-17] MEDS ORDERED: ALBUTEROL FS 2.5 MG/3 ML VIAL.NEB NEB PRN (12:30)
[2022-06-17] MEDS: ACETAMINOPHEN 325 MG TABLET PO PRN (15:47)
--- NOTE | 2022-06-17 18:51 | NUR ---
RN CLOSING NOTE PATIENT AWAKE IN BED RESTING, A/O X 1, CONFUSED, NO S/S OF PAIN NOTED AT THIS TIME. ON ROOM AIR, NO SHORTNESS OF BREATH, NO DISTRESS NOTED. IV ACCESS LAC #20G, INTACT, PATENT AND FLUSHING WELL. PATIENT ON EXTERNAL AGRICULTURAL COMMODITIES INSPECTOR WITH CURRENT READING OF SR AND HR OF 60, NO CARDIAC DISTRESS NOTED. PATIENT HAVE A AVERY CATHETER IN PLACE AND DRAINING WELL, OUTPUT 1000 ML. IV MEDS AND 1800 SCHEDULE MEDICATIONS ADMINISTERED. PATIENT WAS ENCOURAGE TO TURN AND REPOSITION PER PROTOCOL. FALL AND SAFETY MEASURES IN PLACE, BED ALARM ON, BED IN LOW AND LOCK POSITION, CALL LIGHT AND TABLE WITHIN EASY REACH, SIDE RAILS UP X2. ALL NEEDS ATTENDED AND ANTICIPATED. WILL ENDORSE TO CHILD CARE CENTER ASSISTANT DIRECTOR NURSE.
--- NOTE | 2022-06-17 19:10 | NUR ---
RN opening notes Pt is resting in bed comfortably accompanied by Pt's . Pt is alert and orientedX2. On room air. No sob. No s/s of distress noted. Tele monitor showed SR. IV site at LAC# 20 is clean, intact and infuising well NS@ 75 ml/hr. soft wrist restrain is in placed and skin is warm to touch and circulation checks Q 2hr. safety precautions is maintained. Bed at low position, brakes locked, bed alarm is on, side rails up X3, hob elevated, and call light is within reach. will continue to monitor.
[2022-06-17 20:00] VITALS: BP 125/77
[2022-06-17] MEDS: QUETIAPINE FUMARATE 100 MG TABLET PO SCH (21:18)
[2022-06-18] VITALS: BP 152/89
[2022-06-18] MEDS: ACETAMINOPHEN 325 MG TABLET PO PRN (01:22)
--- NOTE | 2022-06-18 01:28 | NUR ---
RN notes Pt is complaining of headache and requesting tylenol. administered tylenol 650 mg/po/prn as ordered for headache. safety precautions is maintained. will continue to monitor.
[2022-06-18] MEDS: PIPERACILLIN /TAZOBACTAM 3.375 G in IV D5W 50 ML IV SCH ×4 (02:28→20:09)
[2022-06-18 04:00] VITALS: BP 126/92
--- NOTE | 2022-06-18 06:35 | NUR ---
RN closing notes Pt is resting in bed comfortably. Pt is alert and orientedX2. On room air. No sob. No s/s of distress noted. Vs is stable. Routine meds were given as ordered. Tele monitor showed SR hr at 66. IV site at LAC# 20 is clean, intact and infuising well NS@ 75 ml/hr. soft wrist restraint is in placed and skin is warm to touch and circulation checks Q 2hr. vela cath is inplaced and draining yellow urine 400ml. kept Pt clean, dry and comfortable. safety precautions is maintained. Bed at low position, brakes locked, bed alarm is on, side rails up X3, hob elevated, and call light is within reach. will endorse to am nurse for BARBI.
[2022-06-18 06:47] LABS: CALCIUM, SERUM 8.5 mg/dL (8.5-10.1); CREATININE 0.8 mg/dL (0.6-1.3); MAGNESIUM 1.9 mg/dL (1.8-2.4); PHOSPHORUS 2.6 mg/dL (2.5-4.9); POTASSIUM 3.1 mmol/L (3.5-5.1)
[2022-06-18 06:59] LABS: BASOPHILS % (AUTO) 0.7 % (0.0-2.0); EOSINOPHILS % (AUTO) 4.4 % (0.0-6.0); HEMATOCRIT 24 % (33-45); HEMOGLOBIN 7.3 g/dL (11.5-14.8); LYMPHOCYTES # (AUTO) 1.4 K/uL (0.8-4.8); LYMPHOCYTES % (AUTO) 31.8 % (20.0-44.0); MEAN CORPUSCULAR HGB CONC 30 g/dl (31.0-36.0); MEAN CORPUSCULAR VOLUME 67 fL (82-100); MONOCYTES # (AUTO) 0.5 K/uL (0.1-1.30); MONOCYTES % (AUTO) 12.2 % (2.0-12.0); NEUTROPHILS # (AUTO) 2.2 K/uL (1.8-8.9); NEUTROPHILS % (AUTO) 50.9 % (43.0-81.0); PLATELET COUNT (AUTO) 228 K/uL (150-450); RED BLOOD CELL COUNT(AUTO) 3.59 MIL/uL (4.0-5.2); WHITE BLOOD COUNT (AUTO) 4.3 K/uL (4.3-11.0)
[2022-06-18 08:00] VITALS: BP 147/94
[2022-06-18] MEDS: CITALOPRAM HYDROBROMIDE 20 MG TABLET PO SCH (08:04)
[2022-06-18] MEDS: OXCARBAZEPINE 150 MG TABLET PO SCH ×3 (08:04→17:00)
[2022-06-18] MEDS: ENOXAPARIN SODIUM 40 MG/0.4 ML DISP.SYRIN SQ SCH ×3 (08:05→20:10)
[2022-06-18] MEDS: PANTOPRAZOLE 40 MG VIAL IV SCH (08:07)
[2022-06-18 10:14] LABS: EOSINOPHILS % (MANUAL) 5 % (0-4); LYMPHOCYTES % (MANUAL) 26 % (16-48); MONOCYTES % (MANUAL) 9 % (0-11.0); NEUTROPHILS % (MANUAL) 60 (42-76)
[2022-06-18] MEDS ORDERED: POTASSIUM CHLORIDE 20 MEQ POWDER PACKET PO ONE (14:00)
[2022-06-18 16:00] VITALS: BP 135/77
--- NOTE | 2022-06-18 18:14 | NUR ---
END OF SHIFT SUMMARY PATIENT IS A/O X3. VSS, AFEBRILE, DENIES ANY PAIN THROUGHOUT THE SHIFT. SATURATING WELL ON RA. AMBULATORY WITH STEADY GAIT. PATIENT REFUSED TELE, EDUCATED ABOUT ITS RISKS/BENEFITS, STILL REFUSED. AVERY CATHETER REMOVED AT 0830, VOIDED. RESTRAINT HAS BEEN DISCONTINUED AT 0800, PATIENT IS MORE ALERT AND COOPERATIVE WITH TREATMENT. K REPLACED. IV ACCESS ON L AC #20, NS RUNNING AT 75 ML/HR. INDEPENDENT WITH REPOSITIONING. SAFETY MEASURES MAINTAINED. BED IN LOWEST POSITION, BRAKES LOCKED. SISDE RAILS UP X2. CALL LIGHT WITHIN REACH. WILL ENDORSE CONTINUITY OF CARE TO ONCOMING SHIFT.
--- NOTE | 2022-06-18 19:30 | NUR ---
MS RN OPENING NOTE RECEIVED PATIENT RESTING IN BED. PATIENT IS A/O X 2 WITH EPISODES CONFUSION REORIENT THE PATIENT. NO S/S OF PAIN NOTED AT THIS TIME. ON ROOM AIR, NO SHORTNESS OF BREATH, NOTED. IV ACCESS LAC #20G, INTACT, PATENT AND FLUSHING WELL. FALL AND SAFETY MEASURES IN PLACE, BED ALARM ON, BED IN LOW AND LOCK POSITION, CALL LIGHT AND TABLE WITHIN EASY REACH, SIDE RAILS UP X2. ALL NEEDS ATTENDED AND ANTICIPATED. WILL CONTINUE TO MONITOR CLOSELY.
[2022-06-18 20:00] VITALS: BP 112/71
[2022-06-18] MEDS: QUETIAPINE FUMARATE 100 MG TABLET PO SCH (21:51)
[2022-06-19] MEDS: PIPERACILLIN /TAZOBACTAM 3.375 G in IV D5W 50 ML IV SCH ×2 (02:34→08:38)
[2022-06-19] MEDS: IV NS 0.9% 1,000 ML IV PRN (03:13)
--- NOTE | 2022-06-19 06:32 | NUR ---
MS RN CLOSING NOTE PATIENT RESTING IN BED. PATIENT IS A/O X 2 WITH EPISODES OF CONFUSION REORIENT THE PATIENT. NO S/S OF PAIN NOTED AT THIS TIME. ON ROOM AIR, NO SHORTNESS OF BREATH, NOTED. IV ACCESS LAC #20G, INTACT, PATENT AND FLUSHING NS AT 75 ML/HR. ALL DUE MEDS GIVEN ORDERED. FALL AND SAFETY MEASURES IN PLACE, BED ALARM ON, BED IN LOW AND LOCK POSITION, CALL LIGHT AND TABLE WITHIN EASY REACH, SIDE RAILS UP X2. ALL NEEDS ATTENDED AND ANTICIPATED. WILL ENDORSE FOR BARBI.
[2022-06-19 07:00] VITALS: BP 127/83
--- NOTE | 2022-06-19 07:54 | NUR ---
RN OPENING NOTES RECEIVED PATIENT IN BED, ASLEEP. TOLERATING ROOM AIR. AMBULATORY WITH ASSISTANCE. BREATH EVENLY AND NO PAIN AND DIFFICULTY OF BREATHING NOTED AT THIS TIME. WITH IV ACCESS AT LAC #20G WITH ONGOING NS AT 75ML/HR PATENT AND INTACT. SAFETY MEASURES MAINTAINED. KEPT BED LOWER LOCKED POSITION. KEPT SIDE RAILS UP X 2. KEPT CALL LIGHT WITHIN REACH. WILL CONTINUE TO MONITOR.
[2022-06-19] MEDS: CITALOPRAM HYDROBROMIDE 20 MG TABLET PO SCH (08:33)
[2022-06-19] MEDS: OXCARBAZEPINE 150 MG TABLET PO SCH (08:33)
[2022-06-19] MEDS: PANTOPRAZOLE 40 MG VIAL IV SCH (08:38)
[2022-06-19] MEDS: ENOXAPARIN SODIUM 40 MG/0.4 ML DISP.SYRIN SQ SCH (08:38)
--- NOTE | 2022-06-19 08:45 | NUR ---
ACCESS DATABASE DEVELOPER NOTES PATIENT WANTED TO LEAVE AMA. PATIENT RISKS AND CONDITION EXPLAINED. HEALTH TEACHING DONE. DR. GONZALEZ INFORMED REGARDING AMA. AMA FORMED SIGNED. IV ACCESS REMOVED; PRESSURED DRESSING APPLIED. PANTOPRAZOLE, LOVENOX AND IV ANTIBIOTIC REFUSED BY THE PATIENT. ALL DISCHARGE INSTRUCTIONS AND HOME INSTRUCTIONS REFUSED BY THE PATIENT. PATIENT LEFT VIA PRIVATE CAR.
[2022-06-20] MEDS ORDERED: PANTOPRAZOLE 40 MG TABLET.DR PO SCH (07:30)
== END 2022-06-19 08:45 | disposition left against medical advice (07) | DRG 871 ==
LOC: ER 18:58 → TELE 21:33 → MED 06-18 13:19
PROVIDERS: ADMIT Nurse Practitioner Acute Care; ATTEND Student in an Organized Health Care Education/Training Program
DX: A41.9 Sepsis, unspecified organism (principal); G92.8 Other toxic encephalopathy; N39.0 Urinary tract infection, site not specified; F32.A Depression, unspecified; G40.909 Epilepsy, unspecified, not intractable, without status epilepticus; R65.20 Severe sepsis without septic shock; M81.0 Age-related osteoporosis without current pathological fracture; Z87.11 Personal history of peptic ulcer disease; Z88.2 Allergy status to sulfonamides; Z98.84 Bariatric surgery status; J44.9 Chronic obstructive pulmonary disease, unspecified; D50.9 Iron deficiency anemia, unspecified; E05.90 Thyrotoxicosis, unspecified without thyrotoxic crisis or storm; Z87.891 Personal history of nicotine dependence; B96.20 Unspecified Escherichia coli [E. coli] as the cause of diseases classified elsewhere
CPT/HCPCS: 36415; 70450-TC; 71045-TC; 80048-TC; 80061-TC; 80076-TC; 81001; 82140-TC; 82962-TC; 83540-TC; 83605-TC; 83690-TC; 83735-TC; 84100-TC; 84436-TC; 84443-TC; 84481; 84484-TC; 85025-TC; 85730-TC; 87040-TC; 87081-TC; 87086-TC; 97112-TC; 97116-TC; 97530-TC; C9113; C9803; G0378; G0480; J1650; J2405; J2543; J7030; J7060

== ENCOUNTER 2023-03-09 06:15 | Inpatient (IN) | payer MEDICARE, OTHER ==
[~2023-03-09] VITALS: Ht 162.6 cm; Wt 49.5 kg
[2023-03-09] VITALS (11 sets, daily range): BP systolic 91–198; BP diastolic 70–107; TEMP 97.6–98.9; O2SAT 90–97
[~2023-03-09 06:15] MED LIST changes: +CITA20TA16 PO; -DOCU-141 PO; -IPRA3AMP23 IH; +OXCA600T8 PO; -PANT40TA2 PO; +QUET200T5 PO
[2023-03-09] MEDS ORDERED: MORPHINE SULFATE INJ 2 MG/ML DISP.SYRIN IV ONE ×2 (06:30→07:30)
[2023-03-09] MEDS ORDERED: IV NS 0.9% 1,000 ML BAG IV ONE (06:30)
[2023-03-09] MEDS ORDERED: FAMOTIDINE/PF INJ 20 MG/2 ML VIAL IV ONE ×2 (06:30→06:32)
[2023-03-09] MEDS ORDERED: MORPHINE SULFATE INJ 2 MG/ML DISP.SYRIN ONE (06:32)
[2023-03-09] MEDS ORDERED: LORAZEPAM INJ 2 MG/ML VIAL ONE (06:47)
[2023-03-09 06:49] LABS: BASOPHILS # (AUTO) 0.1 K/uL (0.0-0.2); BASOPHILS % (AUTO) 0.9 % (0.0-2.0); EOSINOPHILS # (AUTO) 0.2 K/uL (0.0-0.7); EOSINOPHILS % (AUTO) 2.8 % (0.0-6.0); HEMATOCRIT 26 % (33-45); HEMOGLOBIN 7.8 g/dL (11.5-14.8); LYMPHOCYTES # (AUTO) 1.5 K/uL (0.8-4.8); LYMPHOCYTES % (AUTO) 20.9 % (20.0-44.0); MEAN CORPUSCULAR HEMOGLOBIN 20 PG (26.0-33.0); MEAN CORPUSCULAR HGB CONC 30 g/dl (31.0-36.0); MEAN CORPUSCULAR VOLUME 66 fL (82-100); MONOCYTES # (AUTO) 0.6 K/uL (0.1-1.30); MONOCYTES % (AUTO) 7.8 % (2.0-12.0); NEUTROPHILS # (AUTO) 4.8 K/uL (1.8-8.9); NEUTROPHILS % (AUTO) 67.6 % (43.0-81.0); PLATELET COUNT (AUTO) 518 K/uL (150-450); RED BLOOD CELL COUNT(AUTO) 3.96 MIL/uL (4.0-5.2); RED CELL DISTRIBUTION WIDTH 20.9 % (11.5-15.0); WHITE BLOOD COUNT (AUTO) 7.1 K/uL (4.3-11.0)
[2023-03-09] MEDS ORDERED: LORAZEPAM INJ 2 MG/ML VIAL IV ONE (07:00)
[2023-03-09 07:11] LABS: CALCIUM, SERUM 9.2 mg/dL (8.5-10.1); CARBON DIOXIDE 23 mmol/L (21-32); CHLORIDE 105 mmol/L (98-107); CREATININE 0.7 mg/dL (0.6-1.3); GLUCOSE 108 mg/dL (74-106); POTASSIUM 3.8 mmol/L (3.5-5.1); SODIUM SERUM 139 mmol/L (136-145); UREA NITROGEN, BLOOD 23 mg/dL (7-18)
[2023-03-09 07:16] LABS: ALANINE AMINOTRANSFERASE 18 U/L (12-78); ALBUMIN 3.3 g/dL (3.4-5.0); ALKALINE PHOSPHATASE 131 U/L (46-116); ASPARTATE AMINOTRANSFERASE 14 U/L (15-37); BILIRUBIN,TOTAL 0.1 mg/dL (0.2-1.0); LIPASE 61 U/L (16-77); TOTAL PROTEIN, SERUM 7.3 g/dL (6.4-8.2)
[2023-03-09] MEDS ORDERED: MORPHINE SULFATE INJ 4 MG/ML DISP.SYRIN ONE ×2 (07:17→08:15)
[2023-03-09] MEDS ORDERED: MORPHINE SULFATE INJ 2 MG/ML DISP.SYRIN IM ONE (07:30)
[2023-03-09] MEDS: MORPHINE SULFATE INJ 2 MG/ML DISP.SYRIN IV ONE ×2 (08:19→08:23)
[2023-03-09] MEDS ORDERED: NA PHOS,M-B/NA PHOS,DI-BA 1 EA ENEMA RC ONE (08:40)
[2023-03-09] MEDS ORDERED: ANESTHESIA TRAY IN PYXIS 1 EA TRAY MC ONE (09:54)
[2023-03-09] MEDS ORDERED: BUSP5TAB3 PO (10:54)
[2023-03-09] MEDS ORDERED: FENTANYL PF 250MCG/5ML AMPUL ONE (11:01)
[2023-03-09] MEDS ORDERED: BUPIVACAINE 0.5 % PF 150 MG/30 ML VIAL ONE (11:10)
[2023-03-09] MEDS ORDERED: BUPIVACAINE 0.25% 75 MG/30 ML VIAL ONE (11:10)
[2023-03-09] MEDS ORDERED: SEVOFLURANE 250 ML BOTTLE IH ONE (11:10)
[2023-03-09] MEDS ORDERED: LIDOCAINE 1%-EPI 1:100,000 20 ML VIAL ONE (11:10)
[2023-03-09] MEDS ORDERED: NOREPINEPHRINE 4 MG/4 ML AMPUL IV ONE (11:11)
[2023-03-09] MEDS ORDERED: HYDROMORPHONE 1 MG/1 ML DISP.SYRIN ONE (14:49)
[2023-03-09] MEDS ORDERED: MORPHINE SULFATE INJ 2 MG/ML DISP.SYRIN IV PRN ×2 (16:00→16:30)
[2023-03-09] MEDS ORDERED: PANTOPRAZOLE 40 MG VIAL IV SCH (16:00)
[2023-03-09 16:07] LABS: BASOPHILS % (AUTO) 0.3 % (0.0-2.0); EOSINOPHILS % (AUTO) 0.2 % (0.0-6.0); HEMATOCRIT 29 % (33-45); HEMOGLOBIN 8.4 g/dL (11.5-14.8); LYMPHOCYTES # (AUTO) 0.3 K/uL (0.8-4.8); LYMPHOCYTES % (AUTO) 12.1 % (20.0-44.0); MEAN CORPUSCULAR HEMOGLOBIN 20 PG (26.0-33.0); MEAN CORPUSCULAR HGB CONC 29 g/dl (31.0-36.0); MEAN CORPUSCULAR VOLUME 69 fL (82-100); MONOCYTES # (AUTO) 0.2 K/uL (0.1-1.30); MONOCYTES % (AUTO) 6.9 % (2.0-12.0); NEUTROPHILS # (AUTO) 1.9 K/uL (1.8-8.9); NEUTROPHILS % (AUTO) 80.5 % (43.0-81.0); PLATELET COUNT (AUTO) 388 K/uL (150-450); RED BLOOD CELL COUNT(AUTO) 4.26 MIL/uL (4.0-5.2); RED CELL DISTRIBUTION WIDTH 20.9 % (11.5-15.0); WHITE BLOOD COUNT (AUTO) 2.4 K/uL (4.3-11.0)
[2023-03-09 16:13] LABS: CALCIUM, SERUM 8.7 mg/dL (8.5-10.1); CREATININE 0.6 mg/dL (0.6-1.3); POTASSIUM 4.4 mmol/L (3.5-5.1)
[2023-03-09] MEDS ORDERED: ACETAMINOPHEN 325 MG TABLET PO PRN (16:30)
[2023-03-09] MEDS: OXCARBAZEPINE 150 MG TABLET PO SCH ×2 (16:30→17:07)
[2023-03-09] MEDS ORDERED: LORAZEPAM INJ 2 MG/ML VIAL IV PRN (16:30)
[2023-03-09] MEDS ORDERED: ONDANSETRON HCL/PF 4 MG/2 ML VIAL IVP PRN (16:30)
[2023-03-09] MEDS ORDERED: Z GUARD REMEDY 4 OZ OINT TP PRN (16:30)
[2023-03-09] MEDS ORDERED: hydrALAZINE HCL IV 20 MG VIAL IV PRN (16:30)
[2023-03-09] MEDS ORDERED: ALBUTEROL FS 2.5 MG/3 ML VIAL.NEB NEB PRN (16:30)
[2023-03-09] MEDS: IV LR 1000 ML 1,000 ML IV PRN (17:04)
[2023-03-09] MEDS: PIPERACILLIN /TAZOBACTAM 3.375 G in IV D5W 50 ML IV SCH ×2 (17:28→23:14)
[2023-03-09] MEDS: HYDROMORPHONE 1 MG/1 ML DISP.SYRIN IV PRN ×2 (18:00→21:37)
[2023-03-09 18:22] LABS: BAND % (MANUAL) 8 % (0.0-5.0); LYMPHOCYTES % (MANUAL) 18 % (16-48); MONOCYTES % (MANUAL) 4 % (0-11.0); MYELOCYTES % 2 % (0-0); NEUTROPHILS % (MANUAL) 68 (42-76); PLATELET ESTIMATE ADEQU
[2023-03-09 18:23] LABS: ANISOCYTOSIS 1+; HYPOCHROMASIA 1+; OVALOCYTES 1+; TARGET CELLS RARE
[2023-03-09 20:04] LABS: THYROID STIMULATING HORMONE 1.917 uIU/mL (0.358-3.74)
[2023-03-09] MEDS: QUETIAPINE FUMARATE 100 MG TABLET PO SCH (21:18)
[2023-03-10] VITALS (25 sets, daily range): BP systolic 104–152; BP diastolic 68–93; TEMP 97–98.9; O2SAT 90–98
[2023-03-10] MEDS: HYDROMORPHONE 1 MG/1 ML DISP.SYRIN IV PRN ×3 (02:38→13:08)
[2023-03-10] MEDS: IV LR 1000 ML 1,000 ML IV PRN (05:02)
[2023-03-10] MEDS: PIPERACILLIN /TAZOBACTAM 3.375 G in IV D5W 50 ML IV SCH ×3 (05:19→17:36)
[2023-03-10 06:08] LABS: BASOPHILS % (AUTO) 0.2 % (0.0-2.0); HEMATOCRIT 23 % (33-45); LYMPHOCYTES # (AUTO) 0.6 K/uL (0.8-4.8); MEAN CORPUSCULAR HEMOGLOBIN 20 PG (26.0-33.0); MEAN CORPUSCULAR HGB CONC 30 g/dl (31.0-36.0); MEAN CORPUSCULAR VOLUME 67 fL (82-100); MONOCYTES # (AUTO) 0.6 K/uL (0.1-1.30); MONOCYTES % (AUTO) 9.7 % (2.0-12.0); NEUTROPHILS # (AUTO) 4.8 K/uL (1.8-8.9); NEUTROPHILS % (AUTO) 80.1 % (43.0-81.0); PLATELET COUNT (AUTO) 302 K/uL (150-450); RED CELL DISTRIBUTION WIDTH 20.7 % (11.5-15.0)
[2023-03-10 06:12] LABS: HEMOGLOBIN 6.9 g/dL (11.5-14.8)
[2023-03-10 06:23] LABS: ALBUMIN 2.4 g/dL (3.4-5.0); BILIRUBIN,TOTAL 0.2 mg/dL (0.2-1.0); CALCIUM, SERUM 8.6 mg/dL (8.5-10.1); CREATININE 0.6 mg/dL (0.6-1.3); MAGNESIUM 1.8 mg/dL (1.8-2.4); PHOSPHORUS 3.4 mg/dL (2.5-4.9); POTASSIUM 3.8 mmol/L (3.5-5.1); TOTAL PROTEIN, SERUM 5.8 g/dL (6.4-8.2)
[2023-03-10] MEDS: PANTOPRAZOLE 40 MG VIAL IV SCH (08:43)
[2023-03-10] MEDS: busPIRone 5 MG TABLET PO SCH (08:43)
[2023-03-10] MEDS: OXCARBAZEPINE 150 MG TABLET PO SCH (08:44)
[2023-03-10] MEDS: CITALOPRAM HYDROBROMIDE 20 MG TABLET PO SCH (08:45)
[2023-03-10 12:50] LABS: HEMOGLOBIN 6.9 g/dL (11.5-14.8)
[2023-03-10 18:55] LABS: ANISOCYTOSIS 1+; BAND % (MANUAL) 15 % (0.0-5.0); HYPOCHROMASIA 1+; LYMPHOCYTES % (MANUAL) 13 % (16-48); MONOCYTES % (MANUAL) 4 % (0-11.0); MYELOCYTES % 3 % (0-0); NEUTROPHILS % (MANUAL) 65 (42-76); PLATELET ESTIMATE ADEQUATE
[2023-03-10 18:56] LABS: ROULEAUX 1+
[2023-03-10] MEDS: QUETIAPINE FUMARATE 100 MG TABLET PO SCH (22:09)
[2023-03-11] VITALS: BP 110/70; TEMP 97; O2SAT 95
[2023-03-11] MEDS: PIPERACILLIN /TAZOBACTAM 3.375 G in IV D5W 50 ML IV SCH ×3 (00:16→11:21)
[2023-03-11] MEDS: IV LR 1000 ML 1,000 ML IV PRN (00:16)
[2023-03-11 04:00] VITALS: BP 135/83; TEMP 98.7; O2SAT 96
[2023-03-11 06:49] LABS: BASOPHILS % (AUTO) 0.1 % (0.0-2.0); EOSINOPHILS % (AUTO) 0.1 % (0.0-6.0); HEMATOCRIT 24 % (33-45); HEMOGLOBIN 7.6 g/dL (11.5-14.8); LYMPHOCYTES # (AUTO) 0.7 K/uL (0.8-4.8); LYMPHOCYTES % (AUTO) 8.8 % (20.0-44.0); MEAN CORPUSCULAR HEMOGLOBIN 21 PG (26.0-33.0); MEAN CORPUSCULAR HGB CONC 31 g/dl (31.0-36.0); MEAN CORPUSCULAR VOLUME 68 fL (82-100); MONOCYTES # (AUTO) 0.5 K/uL (0.1-1.30); MONOCYTES % (AUTO) 5.8 % (2.0-12.0); NEUTROPHILS # (AUTO) 6.7 K/uL (1.8-8.9); NEUTROPHILS % (AUTO) 85.2 % (43.0-81.0); PLATELET COUNT (AUTO) 265 K/uL (150-450); RED BLOOD CELL COUNT(AUTO) 3.58 MIL/uL (4.0-5.2); RED CELL DISTRIBUTION WIDTH 20.9 % (11.5-15.0); WHITE BLOOD COUNT (AUTO) 7.8 K/uL (4.3-11.0)
[2023-03-11 07:19] LABS: CALCIUM, SERUM 9.1 mg/dL (8.5-10.1); CREATININE 0.7 mg/dL (0.6-1.3); PHOSPHORUS 2.1 mg/dL (2.5-4.9); POTASSIUM 3.3 mmol/L (3.5-5.1)
[2023-03-11 08:00] VITALS: BP 141/90; TEMP 98.2; O2SAT 94
[2023-03-11] MEDS: busPIRone 5 MG TABLET PO SCH (08:53)
[2023-03-11] MEDS: CITALOPRAM HYDROBROMIDE 20 MG TABLET PO SCH (08:53)
[2023-03-11] MEDS: PANTOPRAZOLE 40 MG VIAL IV SCH (08:53)
[2023-03-11] MEDS: OXCARBAZEPINE 150 MG TABLET PO SCH (08:53)
[2023-03-11] MEDS ORDERED: POTASSIUM CHLORIDE 20 MEQ TAB.PRT.SR PO SCH (12:00)
[2023-03-11] MEDS: HYDROMORPHONE 1 MG/1 ML DISP.SYRIN IV PRN (15:24)
[2023-03-11] MEDS ORDERED: K PHOS NEUTRAL 250 MG TABLET PO ONE (16:00)
[2023-03-11 16:14] VITALS: BP 133/90; TEMP 98.1; O2SAT 96
== END 2023-03-11 18:01 | disposition home or self-care (01) | DRG 329 ==
LOC: ER 06:16 → MED 09:15 → ICU 15:40 → TELE 03-10 13:54
PROVIDERS: ADMIT Nurse Practitioner Acute Care; ATTEND Nurse Practitioner Acute Care
PROC: 0DBF0ZZ Excision of Right Large Intestine, Open Approach (ICD-10-PCS; principal; 2023-03-09)
PROC: 0DJD8ZZ Inspection of Lower Intestinal Tract, Via Natural or Artificial Opening Endoscopic (ICD-10-PCS; 2023-03-09)
PROC: 30233N1 Transfusion of Nonautologous Red Blood Cells into Peripheral Vein, Percutaneous Approach (ICD-10-PCS; 2023-03-10)
DX: K56.2 Volvulus (principal); K65.9 Peritonitis, unspecified; K55.9 Vascular disorder of intestine, unspecified; E87.20 Acidosis, unspecified; D50.9 Iron deficiency anemia, unspecified; D70.9 Neutropenia, unspecified; D75.839 Thrombocytosis, unspecified; F32.A Depression, unspecified; G47.00 Insomnia, unspecified; K21.9 Gastro-esophageal reflux disease without esophagitis; Z88.2 Allergy status to sulfonamides; Z98.84 Bariatric surgery status; Z20.822 Contact with and (suspected) exposure to COVID-19; Z87.11 Personal history of peptic ulcer disease; J45.909 Unspecified asthma, uncomplicated; Z87.891 Personal history of nicotine dependence; J44.9 Chronic obstructive pulmonary disease, unspecified
CPT/HCPCS: 36415; 71045-TC; 74018; 80048-TC; 80053-TC; 80061-TC; 80076-TC; 82728-TC; 83540-TC; 83690-TC; 83735-TC; 84100-TC; 84443-TC; 84484-TC; 85025-TC; 85027-TC; 86850-TC; 97110-TC; 97530-TC; A4223; A6253; C9113; G0378; J0330; J0360; J0690; J1100; J1170; J2060; J2270; J2405; J2543; J2704; J3010; J3490; J7030; J7040; J7060; J7120; P9016

== ENCOUNTER 2023-10-22 20:44 | Emergency (ER) | payer MEDICARE, OTHER ==
[~2023-10-22] VITALS: Ht 162.6 cm; Wt 45.4 kg
[~2023-10-22 20:44] MED LIST changes: +BUSP5TAB3 PO
[2023-10-22] MEDS ORDERED: methylPREDNISolone SOD SUCC 125 MG/2ML VIAL ONE (21:14)
[2023-10-22] MEDS ORDERED: Magnesium 1GM/D5W 100ML PREMIX 100 ML IV ONE (21:14)
[2023-10-22] MEDS: methylPREDNISolone SOD SUCC 125 MG/2ML VIAL IV ONE (21:22)
[2023-10-22] MEDS: Magnesium 1GM/D5W 100ML PREMIX 200 ML IV ONE (21:23)
[2023-10-22] MEDS: IPRATROPIUM NEB FS 0.5 MG/2.5 ML AMPUL.NEB NEB ONE (21:30)
[2023-10-22] MEDS: ALBUTEROL FS 2.5 MG/3 ML VIAL.NEB CONTNEB ONE (21:30)
[2023-10-22] MEDS ORDERED: ALBUTEROL FS 2.5 MG/3 ML VIAL.NEB ONE (21:32)
[2023-10-22] MEDS ORDERED: IPRATROPIUM NEB FS 0.5 MG/2.5 ML AMPUL.NEB ONE (21:33)
[2023-10-22 21:43] LABS: BASOPHILS # (AUTO) 0.1 K/uL (0.0-0.2); BASOPHILS % (AUTO) 1.1 % (0.0-2.0); EOSINOPHILS # (AUTO) 0.6 K/uL (0.0-0.7); EOSINOPHILS % (AUTO) 9.4 % (0.0-6.0); HEMATOCRIT 33 % (33-45); HEMOGLOBIN 10.5 g/dL (11.5-14.8); LYMPHOCYTES # (AUTO) 2.2 K/uL (0.8-4.8); LYMPHOCYTES % (AUTO) 32.9 % (20.0-44.0); MEAN CORPUSCULAR HEMOGLOBIN 28 PG (26.0-33.0); MEAN CORPUSCULAR HGB CONC 33 g/dl (31.0-36.0); MEAN CORPUSCULAR VOLUME 86 fL (82-100); MONOCYTES # (AUTO) 0.5 K/uL (0.1-1.30); MONOCYTES % (AUTO) 7.7 % (2.0-12.0); NEUTROPHILS # (AUTO) 3.2 K/uL (1.8-8.9); NEUTROPHILS % (AUTO) 48.9 % (43.0-81.0); PLATELET COUNT (AUTO) 307 K/uL (150-450); RED BLOOD CELL COUNT(AUTO) 3.76 MIL/uL (4.0-5.2); RED CELL DISTRIBUTION WIDTH 15.5 % (11.5-15.0); WHITE BLOOD COUNT (AUTO) 6.6 K/uL (4.3-11.0)
[2023-10-22 22:00] LABS: CARBON DIOXIDE 32 mmol/L (21-32); CHLORIDE 105 mmol/L (98-107); CREATININE 0.7 mg/dL (0.6-1.3); GLUCOSE 81 mg/dL (74-106); INR 1.25 (0.91-1.10); POTASSIUM 3.8 mmol/L (3.5-5.1); PROTHROMBIN TIME 13.1 SECS (9.2-11.1); SODIUM SERUM 142 mmol/L (136-145); UREA NITROGEN, BLOOD 22 mg/dL (7-18)
[2023-10-22 22:12] LABS: ALANINE AMINOTRANSFERASE 32 U/L (12-78); ALBUMIN 3.2 g/dL (3.4-5.0); ALKALINE PHOSPHATASE 161 U/L (46-116); ASPARTATE AMINOTRANSFERASE 20 U/L (15-37); BILIRUBIN,DIRECT 0.1 mg/dL (0.0-0.2); BILIRUBIN,TOTAL 0.1 mg/dL (0.2-1.0); NT-PRO BNP 389 pg/mL (0-125); TOTAL PROTEIN, SERUM 7.7 g/dL (6.4-8.2)
[2023-10-23] MEDS ORDERED: PRED20TA PO (00:39)
[2023-10-23 03:05] VITALS: BP 137/97; TEMP 98; O2SAT 100
[2023-10-24 20:29] LABS: ABG BASE EXCESS 0.9 mmol/L; ABG OXYGEN SATURATION 98.5 % (92.0-98.5); ABG PH 7.351 (7.350-7.450); ABG PO2 166.8 mmHg (75.0-100.0); ABG TOTAL HEMOGLOBIN 11.1 G/dL (12.0-16.0); COHb 0.7 % (0.5-1.5); MetHb 0.3 % (0.0-1.5); O2Hb 97.5 % (94.0-97.0); SITE, ABG Right Radial; VENT MODE, BG NRB 100%
== END 2023-10-23 03:06 | disposition home or self-care (01) ==
LOC: ER 20:49
DX: J44.1 Chronic obstructive pulmonary disease with (acute) exacerbation (principal); R06.03 Acute respiratory distress; F19.10 Other psychoactive substance abuse, uncomplicated; F17.200 Nicotine dependence, unspecified, uncomplicated; Z87.19 Personal history of other diseases of the digestive system; Z88.2 Allergy status to sulfonamides
CPT/HCPCS: 99285; 96365; 71045; 96375; 93005; 85025; 80048; 80076; 36415; 84484; 85730; 83880; 36600 ×2; 94660; 94644; J3475; J2919